=== PATIENT | female | born 1995 | race Caucasian/White ===

== ENCOUNTER 2016-11-12 18:30 | Day surgery (SDC) | payer OTHER ==
[2016-11-12] VITALS (9 sets, daily range): BP systolic 99–120; BP diastolic 50–68; PULSE 88–96; RESP 15–18; TEMP 98.8; Ht 157.5 cm; Wt 50.0 kg
[~2016-11-12] VITALS: Ht 157.5 cm; Wt 50.0 kg
[~2016-11-12 18:30] MED LIST: ALBU8.5H3 INH; BECL8.7A INH; CEPH-443 PO; CIPR500T4 PO; IBUP-1542 PO; PHEN95TA29 PO
[2016-11-12] MEDS ORDERED: ONDANSETRON 4 MG INJ IV STA (18:54)
[2016-11-12 19:12] LABS: BASOPHILS % 0.4 % (0.0-2.0); EOSINOPHILS # 0.2 10^3/ul (0.0-0.5); EOSINOPHILS % 3.1 % (0.0-7.0); HEMATOCRIT 40.9 % (37.0-47.0); LYMPHOCYTES # 3.5 10^3/ul (0.8-2.9); LYMPHOCYTES % 49.2 % (18.0-55.0); MEAN CORPUSCULAR HEMOGLOBIN 28.8 pg (29.0-33.0); MEAN CORPUSCULAR HGB CONC 34.2 g/dl (32.0-37.0); MEAN CORPUSCULAR VOLUME 84.2 fl (72.0-104.0); MEAN PLATELET VOLUME 8.6 fl (7.4-10.4); MONOCYTE # 0.4 10^3/ul (0.3-0.9); MONOCYTES % 5.5 % (0.0-13.0); NEUTROPHILS % 41.7 % (30.0-74.0); PLATELET COUNT 423 10^3/UL (140-415); RED BLOOD COUNT 4.86 10^6/ul (4.20-5.40); RED CELL DISTRIBUTION WIDTH 12.8 % (11.5-14.5); WHITE BLOOD COUNT 7.1 10^3/ul (4.8-10.8)
[2016-11-12 19:36] LABS: ALBUMIN 4.6 g/dl (3.3-4.9); ALBUMIN/GLOBULIN RATIO 1.39; BILIRUBIN,INDIRECT 1.2 mg/dl (0-1.1); BILIRUBIN,TOTAL 1.2 mg/dl (0.2-1.3); CALCIUM 9.4 mg/dl (8.4-10.2); CREATININE 0.74 mg/dl (0.44-1.00); POTASSIUM 3.7 mmol/L (3.5-5.1); TOTAL PROTEIN 7.9 g/dl (6.1-8.1)
--- NOTE | 2016-11-12 19:36 | RADRPT ---
PROCEDURE: X-ray neck CLINICAL INDICATION: 20 years of age, female. Swallowed brush. Evaluate for foreign body.. TECHNIQUE: AP and lateral views of the neck. COMPARISON: None available FINDINGS: The aerodigestive tract is unremarkable. No radiopaque foreign body is identified. The cervical sp ine is normal in appearance. Negative for prevertebral soft tissue swelling. IMPRESSION: 1. Aerodigestive tract appears within normal limits. 2. Negative for evidence of a radiopaque foreign body. RPTAT: HCTS Physician Sumit Date Time Electronically viewed and signed by Physician Sumit on 11/12/2016 19:35 CS/
--- NOTE | 2016-11-12 19:38 | RADRPT ---
PROCEDURE: Portable chest x-ray. CLINICAL INDICATION: 20 years of age, female. Swallowed brush. TECHNIQUE: Portable AP view of the chest. COMPARISON: September 17, 2014 FINDINGS: There is a 3.3 cm radiopaque foreign body in the left upper quadrant of the abdomen in the region of the gastric fundus that resembles a swallowed mascara brush. Cardiomediastinal contours are normal. Lungs are clear. Negative for pleural effusion or pneumothorax. Negative for evidence of a pneumomediastinum. No acute bony abnormality. IMPRESSION: Radiopaque foreign body in the stomach resembles a mascara brush. RPTAT: HCTS Physician Sumit Date Time Electronically viewed and signed by Physician Sumit on 11/12/2016 19:37 /
--- NOTE | 2016-11-12 20:12 | RADRPT ---
PROCEDURE: Ultrasound abdomen limited CLINICAL INDICATION: 20 years of age. Female. Swallowed toothbrush TECHNIQUE: A limited ultrasound of the abdomen was performed utilizing simons scale. COMPARISON: None available. FINDINGS: Limited ultrasound in the left upper quadrant in the region of the stomach was performed. Swallowin g toothbrush is not identified. There are multiple normal-appearing bowel loops. IMPRESSION: Swallowing toothbrush is not seen with ultrasound. RPTAT: HCTS Physician Sumit Date Time Electronically viewed and signed by Physician Sumit on 11/12/2016 20:11 CS/
--- NOTE | 2016-11-12 20:59 | RADRPT ---
PROCEDURE: CT chest without contrast. CLINICAL INDICATION: Pain TECHNIQUE: Noncontrast CT of the chest was performed utilizing axial images with reconstructions i n sagittal and coronal planes. The administered radiation dose is CTDI 3.9 mGy, DLP 131 mGy-cm. COMPARISON: No pertinent prior examinations are submitted for comparison. FINDINGS: Chest: The lungs are clear. No pleural effusions are seen. The tracheobronchial tree is unremarkable. The heart is normal in size. No pericardial effusion is seen. There is no mediastinal or hilar adenopathy. Visualized Upper abdomen: Please refer to the separately dictated examination of the abdomen and pel vis. Osseous structures: Unremarkable. IMPRESSION: No acute lung pathology. No foreign bodies within the chest. RPTAT: HIKT .Chencho Saldana MD, Date Time Electronically viewed and signed by .Chencho Saldana MD, on 11/12/2016 20:59 .T/
[2016-11-12] MEDS ORDERED: SOD CHLORIDE 0.9% 1,000 ML IV ONE (21:00)
--- NOTE | 2016-11-12 21:02 | RADRPT ---
PROCEDURE: CT Abdomen and Pelvis without contrast. CLINICAL INDICATION: Ingested toothbrush. TECHNIQUE: CT scan of the abdomen and pelvis was performed on a multidetector slice CT scanner. No intravenous contrast material was utilized. Sagittal and coronal reformatted images were obtained fr om the axial source images. Images were reviewed on a high-resolution PACS workstation. Exam CTDlvol = 5 mGy and DLP = 240 Gy-cm. One of the following 3 dose reduction techniques were used: Automated exposure control; adjustment of the mA and/or kV according to patient size; or use of iterative yeimi nstruction technique. COMPARISON: None. FINDINGS: There is a radiopaque foreign body spanning the stomach from the cardia to the antrum measuring 20 c m in length and up to 1.6 cm submaximal with. The more superior component S4 gross of hyperdense el ements. Appearances compatible with a toothbrush within the stomach. There is no evidence for pene tration outside the stomach. There is no obstruction or ileus. The appendix is well visualized and normal in size. There is no evidence for diverticulitis. There is no free fluid. There is no free intraperitoneal gas. The liver is overall normal in size. No intrahepatic lesions are identified. The gallbladder is norm al in appearance. There is no definite biliary ductal dilation. Pancreas is normal in appearance. Th e spleen is unremarkable. There are no adrenal masses. The aorta is normal caliber. Kidneys are normal in appearance without hydronephrosis, mass or calculus. There is no perinephric c ollection. Ureters are of normal caliber and without evidence for an obstructing calculus The urinar y bladder is normal in appearance. The uterus and ovaries are grossly unremarkable. Limited evaluation of the lung bases is unremarkable. The bones are unremarkable. IMPRESSION: 1. Foreign body within the stomach compatible with a history of an ingested tooth brush. 2. No evidence for gastric perforation. No free intraperitoneal gas or free fluid. 3. No bowel obstruction or ileus. RPTAT: HMVK .Garcia Cerna MD, MD Date Time Electronically viewed and signed by .Garcia Cerna MD, on 11/12/2016 21:01 .K/
--- NOTE | 2016-11-12 22:04 | ERA ---
ER Documentation Chief Complaint Date/Time DATE: 11/12/16 TIME: 21:55 Chief Complaint swallowed toothbrush today HPI 20-year-old woman complains of abdominal pain shortly after swallowing an entire toothbrush accidentally. She states she was brushing her teeth. She has had some nausea, no vomiting or diarrhea, no blood per rectum, no chest pain , no fevers or chills. Patient denies domestic violence or psychiatric issues. ROS All systems reviewed and are negative except as per history of present illness. Medications Home Meds Active Scripts Phenazopyridine Hcl* (AZO*) 95 Mg Tablet, 95 MG PO TID, #10 TAB Prov:MICHELLE BOX PA-C 08/14/15 Ciprofloxacin Hcl* (Ciprofloxacin Hcl*) 500 Mg Tablet, 500 MG PO BID for 7 Days , TAB Prov:MICHELLE BOX PA-C 08/14/15 Ibuprofen* (Motrin*) 600 Mg Tab, 600 MG PO Q6 for PAIN, #30 TAB Prov:LATOYA HUBER MD 09/17/14 Cephalexin* (Keflex*) 500 Mg Capsule, 500 MG PO TID for 7 Days, CAP Prov:LATOYA HUBER MD 09/17/14 Reported Medications Albuterol Sulfate* (Proair HFA*) 8.5 Gm Hfa.aer.ad, 2 PUFF INH Q4H Y for WHEEZING AND SOB, INH 07/30/14 Beclomethasone Dip* (Qvar 40*) 7.3 Gm Inha, 1 PUFF INH BID, INH 07/30/14 Allergies Allergies: Coded Allergies: No Known Allergy (Unverified , 08/14/15) PMhx/Soc None Medical and Surgical Hx: pt denies Medical Hx, pt denies Surgical Hx History of Surgery: No Anesthesia Reaction: No Hx Neurological Disorder: No Hx Respiratory Disorders: Yes (asthma) Hx Cardiac Disorders: No Hx Psychiatric Problems: No Hx Miscellaneous Medical Probl: No Hx Alcohol Use: No Hx Substance Use: No Hx Tobacco Use: No Smoking Status: Never smoker FmHx Family History: No diabetes Physical Exam Vitals Vital Signs Date Time Temp Pulse Resp B/P Pulse Ox O2 Delivery O2 Flow Rate FiO2 11/12/16 21:29 98.8 68 20 110/68 99 Room Air 11/12/16 18:33 100.1 139 20 147/91 100 Physical Exam GENERAL: Well-developed, well-nourished, well-hydrated, in no apparent distress , looks nontoxic in appearance HEENT: Moist mucous membranes, pink conjunctiva, no cervical spine tenderness or step-off deformities, no goiter, no jaundice or icterus, extraocular movements intact without pain. No submandibular induration, and no pharyngeal erythema NEURO: Alert and oriented 3, cranial nerves II through XII intact bilaterally, pupils equal round reactive to light, no focal deficits or facial asymmetry, sensation intact distally Strength 5/5 in upper and lower extremities bilaterally CARDIAC: Tachycardic, no murmurs rubs LUNGS: Clear bilaterally no wheezing crackles or stridor ABDOMEN: Soft nontender, no guarding, no rigidity, no rebound, no psoas sign no obturator sign. Normoactive bowel sounds SKIN: Warm and dry to touch, no abrasions, contusions, or hematomas, no lacerations, no ecchymosis, no target lesions, and without ulcers EXTREMITIES: No clubbing cyanosis or edema, calves are bilaterally symmetrical, no Homans sign, no popliteal cord sign. Distal pulses equal and bilateral PSYCH: Normal affect without agitation or irritability Result Diagram: 11/12/16184411/12/161844 Results 24 hrs Laboratory Tests Test 11/12/16 18:45 White Blood Count 7.110^3/ul Red Blood Count 4.8610^6/ul Hemoglobin 14.0g/dl Hematocrit 40.9% Mean Corpuscular Volume 84.2fl Mean Corpuscular Hemoglobin 28.8pg Mean Corpuscular Hemoglobin Concent 34.2g/dl Red Cell Distribution Width 12.8% Platelet Count 43111^3/UL Mean Platelet Volume 8.6fl Neutrophils % 41.7% Lymphocytes % 49.2% Monocytes % 5.5% Eosinophils % 3.1% Basophils % 0.4% Nucleated Red Blood Cells % 0.0/100WBC Neutrophils # (Manual) 310^3/ul Lymphocytes # 3.510^3/ul Monocytes # 0.410^3/ul Eosinophils # 0.210^3/ul Basophils # 0.010^3/ul Nucleated Red Blood Cells # 0.010^3/ul Sodium Level 139mmol/L Potassium Level 3.7mmol/L Chloride Level 102mmol/L Carbon Dioxide Level 25mmol/L Anion Gap 16 Blood Urea Nitrogen 9mg/dl Creatinine 0.74mg/dl Glucose Level 120mg/dl Calcium Level 9.4mg/dl Total Bilirubin 1.2mg/dl Direct Bilirubin 0.00mg/dl Indirect Bilirubin 1.2mg/dl Aspartate Amino Transf (AST/SGOT) 27IU/L Alanine Aminotransferase (ALT/SGPT) 26IU/L Alkaline Phosphatase 67IU/L Total Protein 7.9g/dl Albumin 4.6g/dl Globulin 3.30g/dl Albumin/Globulin Ratio 1.39 Current Medications Medications (Trade) Dose Ordered Sig/Tyrone Route PRN Reason Start Time Stop Time Status Last Admin Dose Admin Ondansetron HCl 4 mg 4 mg ONCE STAT IV 11/12/16 18:54 11/12/16 18:56 DC 11/12/16 19:14 Sodium Chloride (NS) 1,000 ml @ 1,000 mls/hr Q1H ONCE IV 11/12/16 21:00 11/12/16 21:59 11/12/16 20:57 Procedures/MDM IV line was established patient was placed on library monitor rhythm strip revealed a sinus tachycardia at 110 bpm. Patient was afebrile. Abdominal ultrasound was performed no foreign body identified. One view chest x-ray performed, read by me there is a visible foreign body in the fundus of the stomach consistent with head of the toothbrush. Cervical spine x-ray was performed no foreign body, acute fracture dislocation noted. CT scan of the chest was performed and was negative for foreign body. Please refer to radiologist dictation for full report. CT scan of the abdomen and pelvis was performed revealing a 20 cm toothbrush in the stomach. CBC was normal, electrolytes normal, liver function tests normal, coagulation profile normal Obtain emergent consultation with GI physician Dr. Belcher, he agreed to perform upper endoscopy and retrieval of toothbrush. Patient was notified of this procedure and agrees. She is kept n.p.o. Patient received 1 L normal saline intravenously and Zofran 4 mg IV. Departure Diagnosis: Primary Impression: Retained foreign body Additional Impression: Gastric foreign body Qualified Code: T18.2XXA - Gastric foreign body, initial encounter Condition: LATOYA Swan MD Nov 12, 2016 22:04
--- NOTE | 2016-11-12 22:26 | CONS ---
Date/Time of Note Date/Time of Note DATE: 11/12/16 TIME: 22:19 Assessment/Plan Assessment/Plan Additional Assessment/Plan Assessment: * Foreign body in the GI tract * History of asthma Plan: * EGD with foreign body removal under general anesthesia. Patient was informed of the procedure including risks, benefits and alternatives. She is agreeable to proceed Consultation Date/Type/Reason Admit Date/Time Date of Consultation: Nov 12, 2016 Type of Consultation: GI Reason for Consultation Foreign body in the GI tract Hx of Present Illness 20-year-old female who claims accidentally swallowing a toothbrush while brushing her teeth. Presents to the emergency room complaining of abdominal pain. Imaging shows a toothbrush in the stomach. Patient will undergo EGD with foreign body removal, she has been informed of procedure including risks, benefits and alternatives. She is agreeable to proceed Constitutional: improved, no complaints Eyes: no complaints ENT: no complaints Respiratory: no complaints Cardiovascular: no complaints Gastrointestinal: nausea, pain Genitourinary: no complaints Musculoskeletal: no complaints Skin: no complaints Neurologic: no complaints Endocrine: no complaints Lymphatic: no complaints Psychological: nl mood/affect, no complaints Immunologic: no complaints Past Medical History Medical History: other (Asthma) Past Surgical History Past Surgical Hx: no surgical history Family History Significant Family History: no pertinent family hx Social History Alcohol Use: rarely Smoking Status: Never smoker Drug Use: none Exam/Review of Systems Vital Signs Vitals Vital Signs Date Time Temp Pulse Resp B/P Pulse Ox O2 Delivery O2 Flow Rate FiO2 11/12/16 21:29 98.8 68 20 110/68 99 Room Air Exam Constitutional: alert, oriented, other (Anxious), well developed Psych: nl mood/affect, no complaints Head: atraumatic, normocephalic Eyes: EOMI, PERRL, nl conjunctiva, nl lids, nl sclera ENMT: nl external ears & nose, nl lips & teeth, nl nasal mucosa & septum Neck: non-tender, supple Respiratory: clear to auscultation, normal air movement Cardiovascular: nl pulses, regular rate and rhythm Gastrointestinal: nl liver, spleen, non-tender, soft Musculoskeletal: nl extremities to inspection Extremities: normal pulses Skin: nl turgor, No rash or lesions Lymph: nl lymph nodes Results Result Diagram: 11/12/16 1845 11/12/16 1845 Results 24 hrs Laboratory Tests Test 11/12/16 18:45 White Blood Count 7.1 Red Blood Count 4.86 Hemoglobin 14.0 Hematocrit 40.9 Mean Corpuscular Volume 84.2 Mean Corpuscular Hemoglobin 28.8 L Mean Corpuscular Hemoglobin Concent 34.2 Red Cell Distribution Width 12.8 Platelet Count 423 H Mean Platelet Volume 8.6 Neutrophils % 41.7 Lymphocytes % 49.2 Monocytes % 5.5 Eosinophils % 3.1 Basophils % 0.4 Nucleated Red Blood Cells % 0.0 Neutrophils # (Manual) 3 Lymphocytes # 3.5 H Monocytes # 0.4 Eosinophils # 0.2 Basophils # 0.0 Nucleated Red Blood Cells # 0.0 Sodium Level 139 Potassium Level 3.7 Chloride Level 102 Carbon Dioxide Level 25 Anion Gap 16 Blood Urea Nitrogen 9 Creatinine 0.74 Glucose Level 120 Calcium Level 9.4 Total Bilirubin 1.2 Direct Bilirubin 0.00 Indirect Bilirubin 1.2 H Aspartate Amino Transf (AST/SGOT) 27 Alanine Aminotransferase (ALT/SGPT) 26 Alkaline Phosphatase 67 Total Protein 7.9 Albumin 4.6 Globulin 3.30 H Albumin/Globulin Ratio 1.39 JAMES GARCIA MD Nov 12, 2016 22:25
[2016-11-12] MEDS ORDERED: SUGAMMADEX SODIUM 200 MG/2 ML VIAL IV ONE (23:04)
[2016-11-12] MEDS ORDERED: LIDOCAINE 2% (SDV) 5 ML INJ ONE (23:11)
[2016-11-12] MEDS ORDERED: ROCURONIUM 50 MG INJ ONE (23:11)
[2016-11-12] MEDS ORDERED: SUCCINYLCHOLINE CHLORIDE 100 MG/5 ML SYG IV ONE (23:11)
[2016-11-12] MEDS ORDERED: PROPOFOL 20 ML ONE (23:11)
--- NOTE | 2016-11-12 23:18 | OPPN ---
Date/Time of Note Date/Time of Note DATE: 11/12/16 TIME: 23:12 Proc Note GI Free Text/Dictation Preoperative Diagnosis: Foreign body in the digestive tract Postoperative Diagnosis: * Foreign body in stomach/removed Plan: * Observation Procedure Performed: EGD with foreign body removal Surgeon: James Belcher MD Learning And Development Manager: None Second Inspector Chief: None Anesthesia/Sedation: General per anesthesiologist Tourniquet Time: NA Estimated Blood Loss: 0 Transfusion Required: No Specimens: Toothbrush Grafts/Implants: None Tubes/Drains: NA Complications: None Pt. Condition Post Procedure: Stable Disposition: PACU After informed consent, with the patient/relatives understanding the procedure, its indications, potential risks and complications, including but not limited to : allergic reaction, bleeding, perforation or infection, and after all pertinent questions were answered to the patients satisfaction, the patient/ relatives signed witnessed informed consent. Following this, premedication was administered slowly IV push under careful cardiovascular and respiratory monitoring with pulse oximetry, automatic blood pressure, and percussion instrument repairer. Once the sedative effect was achieved the patient was place in the left lateral decubitus, the panendoscope was introduced and advanced under visual control. Careful examination of the upper gastrointestinal tract, both on insertion as well as withdrawal of the instrument disclosing the following findings: Esophagus: the mucosa of the entire esophagus was carefully examined and showed the following findings: [the mucosa appears within normal limits. There is no evidence of esophagitis, varices, neoplasm, or stricture. No Hiatal Hernia identified.] Stomach: Upon entrance to the stomach air was insufflated, the gastric wiseman distended normally. The mucosa of the fundus, body and antrum of the stomach was carefully examined both head-on and on retroflexion, and showed the following findings: There is moderate amounts of partially digested food and a toothbrush in the stomach. An overtube have been placed over the endoscope and it was advanced to covered the esophagus. A snare was then utilized to secure the toothbrush from the bristles and carefully maneuvered it into the overtube once the toothbrush was completely within the overtube the overtube with the toothbrush within it was removed without difficulty. The endoscope was then reintroduced and we documented no injury to the gastrointestinal tract. Procedure date: Nov 12, 2016 JAMES BELCHER MD Nov 12, 2016 23:18
[2016-11-12] MEDS ORDERED: MEPERIDINE 25 MG INJ ONE (23:19)
[2016-11-12] MEDS ORDERED: METOCLOPRAMIDE 10 MG INJ IV PRN (23:30)
[2016-11-12] MEDS ORDERED: MEPERIDINE 25 MG INJ IV PRN (23:30)
[2016-11-12] MEDS ORDERED: ALBUTEROL 0.083% (NEB) 2.5 MG/3 ML AMP HHN PRN (23:30)
[2016-11-12] MEDS ORDERED: ONDANSETRON 4 MG INJ IV PRN (23:30)
[2016-11-12] MEDS ORDERED: FENTAnyl 50 MCG/ML VIAL IV PRN (23:30)
[2016-11-12] MEDS ORDERED: DIPHENHYDRAMINE 50 MG INJ IV PRN (23:30)
[2016-11-13] VITALS (10 sets, daily range): BP systolic 95–125; BP diastolic 53–72; PULSE 62–88; RESP 17–20
[2016-11-13] MEDS ORDERED: morphine 2 MG INJ IV PRN (00:30)
[2016-11-13] MEDS ORDERED: ONDANSETRON 4 MG INJ IV PRN (00:30)
[2016-11-13] MEDS: DEXTROSE 5%-0.45% NACL 1,000 ML IV SCH ×2 (00:30→09:54)
[2016-11-13] MEDS: FAMOTIDINE 20 MG INJ IV SCH ×2 (00:38→09:54)
--- NOTE | 2016-11-13 04:48 | HP ---
DATE OF ADMISSION: 11/12/2016 PRESENTING COMPLAINT: Sore throat after accidentally ingesting a toothbrush. HISTORY OF PRESENTING COMPLAINT: Mary is a 20-year-old female, who accidentally ingested her toothbrush while she was brushing her teeth. Patient reports being startled and started coughing significantly, which resulted in her swallowing her toothbrush. She seemed fine initially but then developed severe abdominal pain and was brought to the emergency room. Patient denies history of similar happening in the past, denies history of achalasia, denies history of acid reflux, denies history of foreign body obstruction in her throat or problems or difficulties with swallowing. The patient was taken to the GI lab from the emergency room, where she underwent an uneventful EGD, and the toothbrush was found in her stomach, and it was removed successfully. There was no achalasia noted. There were no diverticula or any other concerning esophageal abnormalities noted. At this time, GI wants her kept n.p.o. and for her to advance her diet in the morning. PAST MEDICAL HISTORY: Patient has no significant medical history. SURGICAL HISTORY: None. ALLERGIES: NO KNOWN DRUG ALLERGIES. SOCIAL HISTORY: Denies tobacco, alcohol or illicit drug use. FAMILY HISTORY: Noncontributory. REVIEW OF SYSTEMS: As per HPI. HOME MEDICATIONS: None. PHYSICAL EXAMINATION: VITAL SIGNS: Temperature 98.2, pulse 88, respirations 17, blood pressure 114/68. Saturation is 98 percent on room air. GENERAL: Patient is alert and oriented, in no distress. HEENT: Head normocephalic. Pupils are equal and reactive. Mucous membranes are moist. Posterior oropharynx is slightly red. Patient is having some sore throat. CARDIAC: Clear to auscultation. CARDIOVASCULAR: S1, S2. No murmurs. ABDOMEN: Soft, nontender at this time, nondistended. EXTREMITIES: No lower extremity edema. LAB VALUES: Her CBC was fairly unremarkable, except for a low MCH and mildly elevated platelet count. Chemistry was also unremarkable as well. ASSESSMENT: Accidental toothbrush ingestion, causing foreign body in digestive tract, status post esophagogastroduodenoscopy and foreign body removal. Patient is admitted for observation, to advance her diet in the morning. No other esophageal abnormality was found or noted. PLAN: Supportive care, pain control. As mentioned, we will advance diet in the morning per GI's recommendation. If patient is able to tolerate diet, she may probably be discharged, if cleared by GI and if no further intervention is needed. Dictated By: Kurtis Powell MD /rob/humberto /Document#: [id number]
--- NOTE | 2016-11-13 11:46 | PDOCDIS ---
Discharge Instructions DIAGNOSIS Discharge Diagnosis Swallowed foreign body. Status post endoscopic removal. CONDITION Patient Condition: Stable HOME CARE INSTRUCTIONS: Diet Instructions: RegularSpecial Diet: regular diet OTHER ORDERS: Other Orders: 1. Take a regular diet. 2. Resume activities as tolerated. SCHOOL/WORK RELEASE May return to School/Work on: Nov 14, 2016 May return to School/Work with: No Restrictions SANIA MACIAS NP Nov 13, 2016 11:46
--- NOTE | 2016-11-13 11:50 | DS ---
Date/Time of Note Date/Time of Note DATE: 11/13/16 TIME: 11:48 Discharge Summary Admission/Discharge Info Admit Date/Time Discharge Date/Time Discharge Diagnosis 1. Swallowed foreign body. Status post endoscopic removal. 2. Asthma. No evidence of any exacerbation. Patient Condition: Stable Consults Vladimir Belcher MD, Gastroenterology. Procedures Procedure Performed: EGD with foreign body removal. CT Chest without Contrast IMPRESSION: No acute lung pathology. No foreign bodies within the chest. CT Abdomen and Pelvis IMPRESSION: 1. Foreign body within the stomach compatible with a history of an ingested tooth brush. 2. No evidence for gastric perforation. No free intraperitoneal gas or free fluid. 3. No bowel obstruction or ileus. Hx of Present Illness This is a 20-year-old female who accidentally ingested a toothbrush while she was brushing her teeth. The patient reports being startled and started coughing significantly which resulted in her swallowing her toothbrush. She subsequently developed significant abdominal pain and was brought to the emergency room. Patient denied any history of achalasia, acid reflux, or foreign body obstruction in her throat problems or difficulties in swallowing. The patient underwent a CT scan of the abdomen and pelvis that showed a foreign body within the stomach compatible with a history of ingested toothbrush. Hospital Course The patient underwent a esophagogastroduodenoscopy with foreign body removal. After removal of the foreign body, endoscopic examination documented no injury to the gastrointestinal tract. Postprocedure, the patient was admitted to inpatient medical surgical floor. The patient was started on a regular consistency diet. The patient was able to tolerate a diet without any significant abdominal pain. Patient was complaining of some sore throat that is not unusual after an endoscopic procedure. The patient was cleared by gastroenterology to be discharged home. Discharge Instructions 1. Take a regular diet. 2. Resume activities as tolerated. 3. May return to school/work on 11/14/2016. The patient verbalized understanding of her discharge instructions. At this time I would like to thank Dr. Belcher for seeing the patient, doing the necessary procedures, and providing clinical recommendations. Case discussed with . Home Meds Reported Medications Albuterol Sulfate* (Proair HFA*) 8.5 Gm Hfa.aer.ad, 2 PUFF INH Q4H Y for WHEEZING AND SOB, INH 07/30/14 Beclomethasone Dip* (Qvar 40*) 7.3 Gm Inha, 1 PUFF INH BID, INH 07/30/14 Discontinued Scripts Phenazopyridine Hcl* (AZO*) 95 Mg Tablet, 95 MG PO TID, #10 TAB Prov:MICHELLE BOX PA-C 08/14/15 Ciprofloxacin Hcl* (Ciprofloxacin Hcl*) 500 Mg Tablet, 500 MG PO BID for 7 Days , TAB Prov:MICHELLE BOX PA-C 08/14/15 Ibuprofen* (Motrin*) 600 Mg Tab, 600 MG PO Q6 for PAIN, #30 TAB Prov:LATOYA HUBER MD 09/17/14 Cephalexin* (Keflex*) 500 Mg Capsule, 500 MG PO TID for 7 Days, CAP Prov:LATOYA HUBER MD 09/17/14 Follow-up Plan Follow-up with your primary care physician as scheduled. Primary Care Provider Mere Paredes Time spent on discharge: > 30 minutes Pending Labs Laboratory Tests Test 11/12/16 18:45 White Blood Count 7.110^3/ul (4.8-10.8) Red Blood Count 4.8610^6/ul (4.20-5.40) Hemoglobin 14.0g/dl (12.0-16.0) Hematocrit 40.9% (37.0-47.0) Mean Corpuscular Volume 84.2fl (72.0-104.0) Mean Corpuscular Hemoglobin 28.8pg (29.0-33.0) Mean Corpuscular Hemoglobin Concent 34.2g/dl (32.0-37.0) Red Cell Distribution Width 12.8% (11.5-14.5) Platelet Count 21903^3/UL (140-415) Mean Platelet Volume 8.6fl (7.4-10.4) Neutrophils % 41.7% (30.0-74.0) Lymphocytes % 49.2% (18.0-55.0) Monocytes % 5.5% (0.0-13.0) Eosinophils % 3.1% (0.0-7.0) Basophils % 0.4% (0.0-2.0) Nucleated Red Blood Cells % 0.0/100WBC (0.0-0.0) Neutrophils # (Manual) 310^3/ul (1.7-7.5) Lymphocytes # 3.510^3/ul (0.8-2.9) Monocytes # 0.410^3/ul (0.3-0.9) Eosinophils # 0.210^3/ul (0.0-0.5) Basophils # 0.010^3/ul (0.0-0.1) Nucleated Red Blood Cells # 0.010^3/ul (0.0-0.0) Sodium Level 139mmol/L (135-144) Potassium Level 3.7mmol/L (3.5-5.1) Chloride Level 102mmol/L (97-110) Carbon Dioxide Level 25mmol/L (21-31) Anion Gap 16 (8-16) Blood Urea Nitrogen 9mg/dl (7-20) Creatinine 0.74mg/dl (0.44-1.00) Glucose Level 120mg/dl (70-220) Calcium Level 9.4mg/dl (8.4-10.2) Total Bilirubin 1.2mg/dl (0.2-1.3) Direct Bilirubin 0.00mg/dl (0.00-0.20) Indirect Bilirubin 1.2mg/dl (0-1.1) Aspartate Amino Transf (AST/SGOT) 27IU/L (15-46) Alanine Aminotransferase (ALT/SGPT) 26IU/L (13-69) Alkaline Phosphatase 67IU/L (42-121) Total Protein 7.9g/dl (6.1-8.1) Albumin 4.6g/dl (3.3-4.9) Globulin 3.30g/dl (1.3-3.2) Albumin/Globulin Ratio 1.39 SANIA MACIAS NP Nov 13, 2016 11:49
--- NOTE | 2016-11-13 12:42 | CONS ---
Date/Time of Note Date/Time of Note DATE: 11/13/16 TIME: 12:39 Consultation Date/Type/Reason Admit Date/Time 11/12/16 Initial Consult Date 11/12/16 Type of Consultation: Anesthesiology Reason for Consultation Follow up 24 HR Interval Summary Free Text/Dictation Pt seen and examined at bedside is POD#1 for foreign body removal from stomach. Pt doing well and states she is comfortable. No anesthetic complications. Will follow. Constitutional: improved, no complaints Exam/Review of Systems Vital Signs Vitals Vital Signs Date Time Temp Pulse Resp B/P Pulse Ox O2 Delivery O2 Flow Rate FiO2 11/13/16 07:54 98.2 66 19 105/53 99 11/13/16 06:23 Room Air Intake and Output 11/12/16 11/12/16 11/13/16 15:00 23:00 07:00 Intake Total 500 ml Balance 500 ml Results Result Diagram: 11/12/16 1845 11/12/16 1845 Results 24 hrs Laboratory Tests Test 11/12/16 18:45 White Blood Count 7.1 Red Blood Count 4.86 Hemoglobin 14.0 Hematocrit 40.9 Mean Corpuscular Volume 84.2 Mean Corpuscular Hemoglobin 28.8 L Mean Corpuscular Hemoglobin Concent 34.2 Red Cell Distribution Width 12.8 Platelet Count 423 H Mean Platelet Volume 8.6 Neutrophils % 41.7 Lymphocytes % 49.2 Monocytes % 5.5 Eosinophils % 3.1 Basophils % 0.4 Nucleated Red Blood Cells % 0.0 Neutrophils # (Manual) 3 Lymphocytes # 3.5 H Monocytes # 0.4 Eosinophils # 0.2 Basophils # 0.0 Nucleated Red Blood Cells # 0.0 Sodium Level 139 Potassium Level 3.7 Chloride Level 102 Carbon Dioxide Level 25 Anion Gap 16 Blood Urea Nitrogen 9 Creatinine 0.74 Glucose Level 120 Calcium Level 9.4 Total Bilirubin 1.2 Direct Bilirubin 0.00 Indirect Bilirubin 1.2 H Aspartate Amino Transf (AST/SGOT) 27 Alanine Aminotransferase (ALT/SGPT) 26 Alkaline Phosphatase 67 Total Protein 7.9 Albumin 4.6 Globulin 3.30 H Albumin/Globulin Ratio 1.39 Medications Medications Current Medications Dextrose/Sodium Chloride (D5-1/2ns) 1,000 ml @ 100 mls/hr Q10H IV Last administered on 11/13/16t 09:54; Admin Dose 100 MLS/HR; Start 11/13/16 at 00:30 Ondansetron HCl (Zofran Inj) 4 mg Q6H PRN IV NAUSEA AND/OR VOMITING; Start at 00:30 Famotidine (Pepcid Iv) 20 mg BID IV Last administered on 11/13/16t 09:54; Admin Dose 20 MG; Start 11/13/16 at 00:30 Morphine Sulfate (morphine) 2 mg Q4H PRN IV pain; Start 11/13/16 at 00:30 YOANA FONTANEZ Nov 13, 2016 12:42
== END 2016-11-13 13:52 | disposition home or self-care (01) ==
LOC: FTE 18:30 → SDS 23:43 → MS1 23:46 → SDS 11-13 13:52
PROVIDERS: ATTEND Family Medicine
DX: T18.2XXA Foreign body in stomach, initial encounter (principal); X58.XXXA Exposure to other specified factors, initial encounter; Y92.89 Other specified places as the place of occurrence of the external cause; J45.909 Unspecified asthma, uncomplicated
CPT/HCPCS: 36415; 43247; 71010; 71250; 72040; 74176; 76705; 80053; 85025; 88300; 96374; J2175; J2405; J7030; J7042; Z7502; Z7610; J7999